=== PATIENT | female | born 2005 | race Hispanic/Latino ===

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

== ENCOUNTER 2024-03-09 08:29 | Outpatient (CLI) | payer OTHER | END 2024-03-09 08:30 | disposition home or self-care (01) | LOC: CSHULT 08:29 | DX: Z33.1 Pregnant state, incidental (principal); Z3A.21 21 weeks gestation of pregnancy | CPT/HCPCS: 76805 ==

== ENCOUNTER 2024-03-16 17:09 | Emergency (ER) | payer OTHER ==
[2024-03-16] MEDS ORDERED: Acetaminophen 500 MG TAB ONE (19:26)
== END 2024-03-16 20:19 | disposition home or self-care (01) ==
LOC: CSHERS 17:09
DX: B34.9 Viral infection, unspecified (principal)
CPT/HCPCS: 87428